=== PATIENT | female | born 1960 | race Caucasian/White ===

== ENCOUNTER 2020-12-27 16:11 | Emergency (ER) | payer BC, MEDICAID ==
[~2020-12-27] VITALS: Ht 160 cm; Wt 75.5 kg
[2020-12-27 16:55] VITALS: BP 150/88
[2020-12-27 17:34] LABS: ALANINE AMINOTRANSFERASE 23 U/L (12-78); ALBUMIN 3.9 G/DL (3.4-5.0); ALBUMIN/GLOBULIN RATIO 1.1 (1.1-1.5); ALKALINE PHOSPHATASE 114 IU/L (46-116); ANION GAP 11 (8-16); ASPARTATE AMINO TRANSFERASE 19 U/L (10-37); BILIRUBIN,TOTAL 0.4 MG/DL (0.1-1.0); BLOOD UREA NITROGEN 14 MG/DL (7-18); BUN/CREATININE RATIO 21.9 (6.6-38.0); CALCIUM 8.9 MG/DL (8.5-10.1); CHLORIDE 106 MMOL/L (99-107); CREATININE 0.64 MG/DL (0.40-0.90); GLUCOSE 112 MG/DL (70-104); POTASSIUM 4.6 MMOL/L (3.5-5.1); SODIUM 142 MMOL/L (135-145); TOTAL PROTEIN 7.3 G/DL (6.4-8.2); eGFR > 90 ML/MIN
[2020-12-27 17:38] LABS: BASOPHILS % (AUTO) 0.5 % (0-1); EOSINOPHILS # (AUTO) 0.1 X10'3 (0-0.9); EOSINOPHILS % (AUTO) 1.2 % (0-6); HEMATOCRIT 45.1 % (35.0-45.0); HEMOGLOBIN 15.5 g/dl (12.0-16.0); LYMPHOCYTES # (AUTO) 1.8 X10'3 (1.1-4.8); MEAN CORPUSCULAR HGB CONC 34.4 g/dL (33.0-36.5); MEAN CORPUSCULAR VOLUME 87.4 FL (78-98); MEAN PLATELET VOLUME 7.9 FL (7.4-10.4); MONOCYTES # (AUTO) 0.6 X10'3 (0-0.9); MONOCYTES % (AUTO) 7.1 % (2-12); NEUTROPHILS # (AUTO) 5.4 X10'3 (1.8-7.7); NEUTROPHILS % (AUTO) 68.2 % (42-75); PLATELET COUNT 288 X10'3 (140-440); RED BLOOD COUNT 5.16 X10'6 (4.20-5.60); RED CELL DISTRIBUTION WIDTH 13.8 % (11.5-14.5); WHITE BLOOD COUNT 7.8 X10'3 (4.5-11.0)
[2020-12-27] MEDS ORDERED: sucralfate 1gm/10ml UD suspension PO STA (19:57)
[2020-12-27] MEDS ORDERED: LIDOcaine Viscous 15ml cup MM ONE (20:00)
[2020-12-27] MEDS ORDERED: ondansetron/PF 4mg/2ml inj IV ONE (20:00)
[2020-12-27] MEDS ORDERED: mag hydrox/Alum hydrox/simeth 30ml oral suspension PO ONE (20:00)
[2020-12-27] MEDS ORDERED: famotidine/PF 10 mg/ml inj IV ONE (20:00)
[2020-12-27] MEDS ORDERED: normal saline 1000ML IV soln IVB ONE (20:00)
[2020-12-27 20:20] LABS: COLOR,URINE YELLOW (Yellow); GLUCOSE, URINE NEGATIVE (Neg); KETONES,URINE NEGATIVE (Neg); LEUKOCYTE ESTERASE ,URINE NEGATIVE (Neg); NITRITES, URINE NEGATIVE (Neg); OCCULT BLOOD,URINE SMALL (Neg); PROTEIN,URINE NEGATIVE (Neg); UROBILINOGEN,URINE 0.2 E.U/dL (0.2-1.0)
[2020-12-27 20:23] LABS: UA COLLECTION TYPE VOIDED
[2020-12-27 20:24] LABS: CLARITY,URINE SLIGHTLY CLOUDY (Clear)
[2020-12-27 20:25] LABS: BACTERIA,URINE 1+ /HPF (Neg); MUCUS STRANDS MANY /LPF (Neg); RBC,URINE 0-2 /HPF (0-2); SQUAMOUS EPITHELIAL CELL,UR MANY /LPF (FEW); WBC,URINE 0-4 /HPF (0-4)
[2020-12-27 20:26] LABS: CAL OXALATE CRYSTALS 2+ /HPF (NEGATIVE)
[2020-12-27] MEDS ORDERED: PANT-47 PO (21:41)
== END 2020-12-27 21:58 | disposition home or self-care (01) ==
LOC: ER 16:13
DX: R10.13 Epigastric pain (principal); R10.31 Right lower quadrant pain; R10.12 Left upper quadrant pain; R11.2 Nausea with vomiting, unspecified; R19.7 Diarrhea, unspecified; Z79.899 Other long term (current) drug therapy
CPT/HCPCS: 36415; 80053; 81001; 85025; 96374; 96375; 99284; J2405; J3490; J7030

== ENCOUNTER 2020-12-29 11:40 | Emergency (ER) | payer BC ==
[~2020-12-29] VITALS: Ht 160 cm; Wt 75.5 kg
[~2020-12-29 11:40] MED LIST: PANT-47 PO
[2020-12-29 11:49] VITALS: BP 125/77
== END 2020-12-29 15:26 | disposition home or self-care (01) ==
LOC: ER 11:40
DX: R10.10 Upper abdominal pain, unspecified (principal); Z79.899 Other long term (current) drug therapy
CPT/HCPCS: 99281

== ENCOUNTER 2024-07-06 02:31 | Inpatient (IN) | payer BC, MEDICAID ==
[~2024-07-06] VITALS: Ht 160 cm; Wt 76.0 kg
[2024-07-06] VITALS (15 sets, daily range): BP systolic 126–179; BP diastolic 47–99; PULSE 71–103; RESP 14–22; TEMP 98.2–98.9; O2SAT 93–99
[2024-07-06] MEDS: normal saline 1000ML IV soln IVB ONE ×2 (03:00→03:01)
[2024-07-06] MEDS: ketorolac trometh 15mg/ml vial 15 MG/ML ML IV ONE (03:01)
[2024-07-06] MEDS: LORazepam 2 mg/ml vial IV ONE (03:01)
[2024-07-06] MEDS: diphenhydrAMINE 50 mg/ml inj IV ONE (03:02)
[2024-07-06] MEDS: metoclopramide 5 mg/ml inj IV ONE (03:02)
[2024-07-06 03:10] LABS: BASOPHILS % (AUTO) 0.1 % (0-1); EOSINOPHILS % (AUTO) 0 % (0-6); HEMATOCRIT 43.4 % (35.0-45.0); HEMOGLOBIN 14.5 g/dl (12.0-16.0); LYMPHOCYTES # (AUTO) 0.5 X10'3 (1.1-4.8); LYMPHOCYTES % (AUTO) 2.5 % (21-51); MEAN CORPUSCULAR HGB CONC 33.5 g/dL (33.0-36.5); MEAN CORPUSCULAR VOLUME 89.5 FL (78-98); MEAN PLATELET VOLUME 7.7 FL (7.4-10.4); MONOCYTES # (AUTO) 1.1 X10'3 (0-0.9); MONOCYTES % (AUTO) 5.3 % (2-12); NEUTROPHILS # (AUTO) 18.8 X10'3 (1.8-7.7); NEUTROPHILS % (AUTO) 92.1 % (42-75); PLATELET COUNT 292 X10'3 (140-440); RED BLOOD COUNT 4.84 X10'6 (4.20-5.60); RED CELL DISTRIBUTION WIDTH 13.1 % (11.5-14.5); WHITE BLOOD COUNT 20.5 X10'3 (4.5-11.0)
[2024-07-06 03:26] LABS: ALANINE AMINOTRANSFERASE 15 U/L (12-78); ALBUMIN 3.9 G/DL (3.4-5.0); ALBUMIN/GLOBULIN RATIO 1.1 (1.1-1.5); ALKALINE PHOSPHATASE 104 IU/L (46-116); ANION GAP 16 (8-16); ASPARTATE AMINO TRANSFERASE 12 U/L (10-37); BILIRUBIN,TOTAL 0.7 MG/DL (0.1-1.0); BLOOD UREA NITROGEN 27 MG/DL (7-18); CALCIUM 9.1 MG/DL (8.5-10.1); CHLORIDE 100 MMOL/L (99-107); CREATININE 0.71 MG/DL (0.40-0.90); GLUCOSE 160 MG/DL (70-104); LIPASE 22 U/L (16-77); POTASSIUM 3.4 MMOL/L (3.5-5.1); SODIUM 138 MMOL/L (135-145); TOTAL PROTEIN 7.6 G/DL (6.4-8.2); eCRCL 66 ML/MIN; eGFR 83 ML/MIN
[2024-07-06] MEDS ORDERED: iohexol 300mg/ml 100ml inj. ONE (03:59)
[2024-07-06] MEDS: CefTRIAXone 2gm/D5W 50ml BAG 50 ML IV ONE (08:15)
[2024-07-06] MEDS: piperacillin/tazo 3.375gm/50ml 50 ML IV ONE (09:02)
[2024-07-06] MEDS ORDERED: NICO-687 TOP (09:27)
[2024-07-06] MEDS ORDERED: ALEN70TA80 PO (09:27)
[2024-07-06] MEDS ORDERED: LOSA1TAB36 PO (09:27)
[2024-07-06] MEDS ORDERED: BACL10TA2 PO (09:27)
[2024-07-06] MEDS ORDERED: CYCL-1 PO (09:27)
[2024-07-06] MEDS ORDERED: ATOR20TA66 PO (09:27)
[2024-07-06] MEDS ORDERED: VENL150T3 PO (09:27)
[2024-07-06 09:28] LABS: URINE HCG NEGATIVE (NEG)
[2024-07-06] MEDS ORDERED: diphenhydrAMINE 50 mg/ml inj IV PRN (09:55)
[2024-07-06] MEDS ORDERED: potassium Cl 20 mEq SR tablet PO PRN ×2 (09:55)
[2024-07-06] MEDS ORDERED: metoclopramide 5 mg/ml inj IV PRN (09:55)
[2024-07-06] MEDS ORDERED: potassium Cl 40MEQ/1/2NS 520ml 520 ML IV PRN (09:55)
[2024-07-06] MEDS ORDERED: bisacodyl 10mg suppository rectal RC PRN (09:55)
[2024-07-06] MEDS ORDERED: ondansetron 4mg rapidly disintigrating tab PO PRN (09:55)
[2024-07-06] MEDS ORDERED: acetaminophen 650mg rectal suppository RC PRN (09:55)
[2024-07-06] MEDS ORDERED: diphenhydrAMINE 25mg capsule PO PRN (09:55)
[2024-07-06] MEDS ORDERED: ondansetron/PF 4mg/2ml inj IV PRN ×2 (09:55→16:45)
[2024-07-06] MEDS ORDERED: acetaminophen 325mg tablet PO PRN ×2 (09:55)
[2024-07-06 10:19] LABS: BILIRUBIN,URINE NEGATIVE (Neg); CLARITY,URINE CLEAR (Clear); COLOR,URINE YELLOW (Yellow); GLUCOSE, URINE NEGATIVE (Neg); KETONES,URINE TRACE mg/dl (Neg); LEUKOCYTE ESTERASE ,URINE NEGATIVE (Neg); NITRITES, URINE NEGATIVE (Neg); OCCULT BLOOD,URINE TRACE-INTACT (Neg); PROTEIN,URINE NEGATIVE (Neg); UA COLLECTION TYPE CLN CATCH MIDSTREAM; UROBILINOGEN,URINE 0.2 E.U/dL (0.2-1.0)
[2024-07-06 10:25] LABS: BACTERIA,URINE NONE SEEN /HPF (Neg); MUCUS STRANDS NONE SEEN /LPF (Neg); SQUAMOUS EPITHELIAL CELL,UR NONE SEEN /LPF (FEW); WBC,URINE 0-4 /HPF (0-4)
[2024-07-06] MEDS: famotidine 20mg tablet PO ONE (11:43)
[2024-07-06] MEDS: acetaminophen 325mg tablet PO PRN (11:43)
[2024-07-06] MEDS: ringers solution, lacted 1,000 ML IV SCH (11:44)
[2024-07-06] MEDS: INDOCYANINE GREEN 25 MG/10 ML VIAL IV ONE (12:41)
[2024-07-06] MEDS ORDERED: BUPIVAcaine/PF 2.5mg/ml (0.25%) 10ml vial ONE (16:20)
[2024-07-06] MEDS ORDERED: sevoflurane 250ml liquid IH ONE (16:42)
[2024-07-06] MEDS ORDERED: labetalol 20mg/4ml (5mg/ml) syringe IV PRN (16:45)
[2024-07-06] MEDS ORDERED: morphine 2 MG/ML inj. syringe IV PRN (16:45)
[2024-07-06] MEDS ORDERED: proCHLORperazine 10 MG/2 ml inj IV PRN (16:45)
[2024-07-06] MEDS ORDERED: HYDROmorphone/PF 0.2 MG/ML SYRINGE IV PRN (16:45)
[2024-07-06] MEDS ORDERED: midazolam 1 mg/ML 2ml injection ONE (16:49)
[2024-07-06] MEDS ORDERED: fentaNYL /PF 50mcg/ml 5ml ampule ONE (16:56)
[2024-07-06] MEDS ORDERED: ceFOXitin 1000 MG inj ONE ×2 (17:02)
[2024-07-06] MEDS ORDERED: LIDOcaine 2% (20mg/ml) 5ml vial ONE (17:03)
[2024-07-06] MEDS ORDERED: rocuronium 10mg/ml inj IV ONE (17:03)
[2024-07-06] MEDS ORDERED: propofol inj 20 ML IV ONE (17:03)
[2024-07-06] MEDS ORDERED: ondansetron/PF 4mg/2ml inj ONE (17:04)
[2024-07-06] MEDS ORDERED: dexamethasone sod phosphate 4mg/ml inj. ONE (17:04)
[2024-07-06] MEDS ORDERED: fentaNYL/PF 50MCG/1 ML 2ML syringe ONE (17:15)
[2024-07-06] MEDS ORDERED: neostigmine methylsulfate 1 MG/ML 10ml vial ONE (18:29)
[2024-07-06] MEDS ORDERED: glycopyrrolate 0.2mg/ml inj ONE (18:29)
[2024-07-06] MEDS ORDERED: HYDROcodone/acetaminophen 5mg/325mg tablet PO PRN (18:35)
[2024-07-06] MEDS ORDERED: naloxone 0.4 mg/ml inj IV PRN (18:35)
[2024-07-06] MEDS: meperidine/PF 25mg/ml syringe IV PRN (18:46)
[2024-07-06] MEDS: acetaminophen 1,000mg/100ml IV 100 ML IV ONE (18:47)
[2024-07-06] MEDS: HYDROmorphone/PF 0.2 MG/ML SYRINGE IV PRN (19:14)
[2024-07-06] MEDS: hydrALAZINE 20mg/ml inj. IV PRN (19:23)
[2024-07-06] MEDS: morphine 4 MG/ML inj SYRINge IV PRN (19:43)
[2024-07-06] MEDS ORDERED: piperacillin/tazo 4.5gm/100ml 100 ML IV SCH (20:00)
[2024-07-06] MEDS ORDERED: temazepam 15mg capsule PO PRN (21:00)
[2024-07-06 21:20] LABS: APTT 26 SECONDS (22-32); INR 1.1 INR; PROTHROMBIN TIME 11.3 SECONDS (9.0-12.0)
[2024-07-06 21:29] LABS: PHOSPHORUS 2.1 MG/DL (2.3-4.5)
[2024-07-06 21:36] LABS: HEMOGLOBIN A1C 5.4 % (4.5-6.2)
[2024-07-06] MEDS: docusate sod 100mg capsule PO SCH (21:50)
[2024-07-06] MEDS: HYDROmorphone inj. 0.5 MG/0.5 ML DISP.SYRIN IV PRN (21:51)
[2024-07-06] MEDS: venlafaxine XR 75mg capsule (Q24H) PO SCH (22:41)
[2024-07-06] MEDS: HYDROcodone/acetaminophen 5mg/325mg tablet PO PRN (23:17)
[2024-07-07] MEDS: piperacillin/tazo 3.375gm/50ml 50 ML IV SCH (00:55)
[2024-07-07 03:00] VITALS: BP 120/53; PULSE 90; RESP 20; TEMP 98.2; O2SAT 94
[2024-07-07 06:30] VITALS: BP 126/67; PULSE 95; RESP 20; TEMP 98.8; O2SAT 96
[2024-07-07 07:00] LABS: CHOL/HDL RATIO 1.8 (0.00-4.99); CHOLESTEROL 116 MG/DL (0-200); HDL CHOLESTEROL 65 MG/DL (35-60); LDL CHOLESTEROL 40 MG/DL (50-100); POTASSIUM 3.8 MMOL/L (3.5-5.1); TRIGLYCERIDES 34 MG/DL (20-135)
[2024-07-07] MEDS: potassium Cl 20mEq in NS 1,000 ML IV SCH (07:35)
[2024-07-07] MEDS: ringers solution, lacted 1,000 ML IV SCH (07:45)
[2024-07-07] MEDS: HYDROcodone/acetaminophen 10/325mg tab PO PRN (08:04)
[2024-07-07 11:00] VITALS: BP 141/74; PULSE 93; RESP 19; TEMP 98.3; O2SAT 97
[2024-07-07 14:35] LABS: BASOPHILS % (AUTO) 0 % (0-1); EOSINOPHILS % (AUTO) 0 % (0-6); HEMATOCRIT 32.5 % (35.0-45.0); HEMOGLOBIN 11.1 g/dl (12.0-16.0); LYMPHOCYTES # (AUTO) 0.7 X10'3 (1.1-4.8); LYMPHOCYTES % (AUTO) 4.3 % (21-51); MEAN CORPUSCULAR HEMOGLOBIN 30.7 PG (27.0-31.0); MEAN CORPUSCULAR VOLUME 90.1 FL (78-98); MEAN PLATELET VOLUME 7.7 FL (7.4-10.4); MONOCYTES # (AUTO) 0.4 X10'3 (0-0.9); MONOCYTES % (AUTO) 2.4 % (2-12); NEUTROPHILS # (AUTO) 15.5 X10'3 (1.8-7.7); NEUTROPHILS % (AUTO) 93.3 % (42-75); PLATELET COUNT 223 X10'3 (140-440); RED BLOOD COUNT 3.61 X10'6 (4.20-5.60); RED CELL DISTRIBUTION WIDTH 13.7 % (11.5-14.5); WHITE BLOOD COUNT 16.6 X10'3 (4.5-11.0)
[2024-07-07 14:37] LABS: ALANINE AMINOTRANSFERASE 39 U/L (12-78); ALBUMIN 2.8 G/DL (3.4-5.0); ALBUMIN/GLOBULIN RATIO 0.8 (1.1-1.5); ALKALINE PHOSPHATASE 79 IU/L (46-116); ANION GAP 11 (8-16); ASPARTATE AMINO TRANSFERASE 33 U/L (10-37); BILIRUBIN,TOTAL 0.5 MG/DL (0.1-1.0); BLOOD UREA NITROGEN 8 MG/DL (7-18); CALCIUM 7.3 MG/DL (8.5-10.1); CHLORIDE 106 MMOL/L (99-107); GLUCOSE 165 MG/DL (70-104); POTASSIUM 3.7 MMOL/L (3.5-5.1); SODIUM 139 MMOL/L (135-145); TOTAL PROTEIN 6.4 G/DL (6.4-8.2); eCRCL 59 ML/MIN; eGFR 72 ML/MIN
[2024-07-07 15:00] VITALS: BP 140/72; PULSE 94; RESP 17; TEMP 97.8; O2SAT 95
[2024-07-07] MEDS: morphine 2 MG/ML inj. syringe IV PRN (16:57)
[2024-07-07 18:00] VITALS: BP 156/77; PULSE 97; RESP 18; TEMP 98.1; O2SAT 94
[2024-07-07] MEDS: traMADol 50MG tablet PO ONE (21:47)
[2024-07-07] MEDS: mag hydrox/Alum hydrox/simeth 30ml oral suspension PO PRN (21:58)
[2024-07-07 22:00] VITALS: BP 152/79; PULSE 100; RESP 18; TEMP 97.7; O2SAT 95
[2024-07-08] MEDS: morphine 2 MG/ML inj. syringe IV PRN (00:12)
[2024-07-08 02:00] VITALS: BP 150/90; PULSE 94; RESP 20; TEMP 97.7; O2SAT 93
[2024-07-08 06:00] VITALS: BP 133/67; PULSE 92; RESP 16; TEMP 98.3; O2SAT 94
[2024-07-08 08:45] VITALS: RESP 16; O2SAT 94
[2024-07-08] MEDS ORDERED: HYDR-3965 PO (10:57)
[2024-07-08] MEDS ORDERED: POLY119P2 PO (10:57)
[2024-07-08 11:00] VITALS: BP 116/77; PULSE 94; RESP 16; TEMP 96.9; O2SAT 95
[2024-07-08] MEDS: magnesium hydroxide 30ml (MOM) UD suspension PO PRN (11:01)
== END 2024-07-08 14:37 | disposition home or self-care (01) | DRG 263 ==
LOC: ER 02:32 → PAS IN 09:32 → PCU 3S 09:59 → ER 20:40
PROVIDERS: ADMIT Family Medicine; ATTEND Family Medicine
PROC: 8E0W4CZ Robotic Assisted Procedure of Trunk Region, Percutaneous Endoscopic Approach (ICD-10-PCS; 2024-07-06)
PROC: BW211ZZ Computerized Tomography (CT Scan) of Abdomen and Pelvis using Low Osmolar Contrast (ICD-10-PCS; 2024-07-06)
PROC: 0FT44ZZ Resection of Gallbladder, Percutaneous Endoscopic Approach (ICD-10-PCS; principal; 2024-07-06 16:42)
DX: K80.01 Calculus of gallbladder with acute cholecystitis with obstruction (principal); E87.6 Hypokalemia; G89.4 Chronic pain syndrome; K57.30 Diverticulosis of large intestine without perforation or abscess without bleeding; I10 Essential (primary) hypertension; K21.9 Gastro-esophageal reflux disease without esophagitis; N20.0 Calculus of kidney; R09.02 Hypoxemia; Z87.442 Personal history of urinary calculi; Z87.891 Personal history of nicotine dependence; Z79.899 Other long term (current) drug therapy
CPT/HCPCS: 36415; 71045; 74177; 76700; 80053; 80061; 81001; 81025; 83036; 83605; 83690; 83735; 83880; 84100; 84132; 84145; 85025; 85610; 85730; 87040; 87081; 93005; 99291; A4215; A4615; A4618; A6212; A6449; A7000; G0378; J0131; J0360; J0694; J0696; J1100; J1171; J1200; J1885; J2003; J2060; J2175; J2250; J2270; J2405; J2543; J2704; J2710; J2765; J3010; J3480; J3490; J7030; J7120; Q9967

== ENCOUNTER 2024-07-12 18:43 | Emergency (ER) | payer MEDICAID ==
[~2024-07-12] VITALS: Ht 165.1 cm; Wt 70.5 kg
[~2024-07-12 18:43] MED LIST changes: +ALEN70TA80 PO; +ATOR20TA66 PO; +BACL10TA2 PO; +CYCL-1 PO; +HYDR-3965 PO; +LOSA1TAB36 PO; +NICO-687 TOP; +POLY119P2 PO; +VENL150T3 PO
[2024-07-12] MEDS: ondansetron/PF 4mg/2ml inj IV ONE (19:17)
[2024-07-12] MEDS: morphine 4 MG/ML inj SYRINge IV ONE (19:17)
[2024-07-12 21:22] LABS: BASOPHILS # (AUTO) 0.1 X10'3 (0-0.2); BASOPHILS % (AUTO) 0.6 % (0-1); EOSINOPHILS % (AUTO) 0.4 % (0-6); HEMATOCRIT 36.9 % (35.0-45.0); HEMOGLOBIN 12.5 g/dl (12.0-16.0); LYMPHOCYTES # (AUTO) 1.1 X10'3 (1.1-4.8); LYMPHOCYTES % (AUTO) 9.2 % (21-51); MEAN CORPUSCULAR HEMOGLOBIN 30.1 PG (27.0-31.0); MEAN CORPUSCULAR HGB CONC 33.9 g/dL (33.0-36.5); MEAN CORPUSCULAR VOLUME 88.7 FL (78-98); MEAN PLATELET VOLUME 7.6 FL (7.4-10.4); MONOCYTES # (AUTO) 0.7 X10'3 (0-0.9); MONOCYTES % (AUTO) 5.3 % (2-12); NEUTROPHILS # (AUTO) 10.3 X10'3 (1.8-7.7); NEUTROPHILS % (AUTO) 84.5 % (42-75); PLATELET COUNT 421 X10'3 (140-440); RED BLOOD COUNT 4.15 X10'6 (4.20-5.60); RED CELL DISTRIBUTION WIDTH 13.7 % (11.5-14.5); WHITE BLOOD COUNT 12.2 X10'3 (4.5-11.0)
[2024-07-12 21:34] LABS: ALANINE AMINOTRANSFERASE 34 U/L (12-78); ALBUMIN/GLOBULIN RATIO 0.7 (1.1-1.5); ALKALINE PHOSPHATASE 118 IU/L (46-116); ANION GAP 16 (8-16); ASPARTATE AMINO TRANSFERASE 32 U/L (10-37); BILIRUBIN,TOTAL 0.4 MG/DL (0.1-1.0); BLOOD UREA NITROGEN 10 MG/DL (7-18); BUN/CREATININE RATIO 15.2 (10.0-20.0); CALCIUM 9.5 MG/DL (8.5-10.1); CHLORIDE 105 MMOL/L (99-107); CREATININE 0.66 MG/DL (0.40-0.90); GLUCOSE 149 MG/DL (70-104); POTASSIUM 3.6 MMOL/L (3.5-5.1); SODIUM 142 MMOL/L (135-145); TOTAL CARBON DIOXIDE 20.7 MMOL/L (24-32); TOTAL PROTEIN 7.1 G/DL (6.4-8.2); eCRCL 77 ML/MIN; eGFR 90 ML/MIN
[2024-07-12] MEDS ORDERED: ONDA-245 PO (22:37)
[2024-07-12 22:57] VITALS: BP 122/82; PULSE 93; RESP 21; TEMP 97.7; O2SAT 98
== END 2024-07-12 22:58 | disposition home or self-care (01) ==
LOC: ER 18:45
DX: K29.70 Gastritis, unspecified, without bleeding (principal); K80.20 Calculus of gallbladder without cholecystitis without obstruction; Z90.49 Acquired absence of other specified parts of digestive tract
CPT/HCPCS: 36415; 80053; 84145; 84484; 85025; 93005; 96374; 96375; 99284; J2270; J2405; J7030